=== PATIENT | male | born 1995 | race Caucasian/White ===

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

== ENCOUNTER 2019-01-13 22:01 | Emergency (ER) | payer BC, OTHER ==
--- NOTE | 2019-01-13 23:29 | ED ---
Lower Extremity - History of Current Complaint Chief Complaint: EDExtremityLower Stated Complaint: LF KNEE LACERATION PER PT Time Seen by Provider: 01/13/19 22:46 Hx Obtained From: Patient Pain Intensity: 4 - Allergies/Home Medications Allergies/Adverse Reactions: Allergies Allergy/AdvReac Type Severity Reaction Status Date / Time No Known Allergies Allergy Verified 01/13/19 22:06 PMH/Surg Hx/FS Hx/Imm Hx Previously Healthy: Yes - Denies significant PMH Endocrine/Hematology History: Denies: Hx Diabetes Cardiovascular History: Denies: Hx Hypertension Infectious Disease History: Yes Infectious Disease History: Denies: Traveled Outside the [place] in Last 30 Days - Family History Known Family History: Negative: Hypertension - Social History Alcohol Use: None Substance Use Type: Reports: None Smoking Status (MU): Never Smoked Tobacco Review of Systems Constitutional: Negative Cardiovascular: Negative Respiratory: Negative Gastrointestinal: Negative Genitourinary: Negative Neurological: Negative All Other Systems Reviewed And Are Negative: Yes Physical Exam - Summary Physical Exam Summary: GENERAL APPEARANCE: Well developed, well nourished, alert and cooperative, and appears to be in no acute distress. CARDIAC: Normal S1 and S2. No S3, S4 or murmurs. Rhythm is regular. There is no peripheral edema, cyanosis or pallor. Extremities are warm and well perfused. Capillary refill is less than 2 seconds. Peripheral pulses intact. LUNGS: Clear to auscultation without rales, rhonchi, wheezing or diminished breath sounds. ABDOMEN: Positive bowel sounds. Soft, nondistended, nontender. No guarding or rebound. No masses or hepatosplenomegally. MUSKULOSKELETAL: ROM intact to all extremities. No joint erythema or tenderness. Normal muscular development. Normal gait. BACK: Examination of the spine reveals normal gait and posture, no spinal deformity or tenderness, decreased range of motion or muscular spasm. EXTREMITIES: Mild tenderness over the left petella without gross deformity, ecchymosis, or edema. Linear laceration noted to the anterior knee with bleeding controlled. Full ROM. Circulation and sensation intact. SKIN: Skin normal color, texture and turgor. Triage Information Reviewed: Yes Vital Signs On Initial Exam: Initial Vitals Temp Pulse Resp BP Pulse Ox 98.7 F 72 16 131/89 98 01/13/19 22:03 01/13/19 22:03 01/13/19 22:03 01/13/19 22:03 01/13/19 22:03 Vital Signs Reviewed: Yes Procedures - Procedure Summary Procedure Summary: Procedure note: Laceration repair ____ Informed consent was obtained before procedure started and the appropriate timeout was taken. The area was prepped and draped in the usual sterile fashion. Local anesthesia was achieved using __ ml of lidocaine __% with/ without epinephrine. The wound was copiously irrigated. The wound margins were brought into good alignment and # interrupted sutures were placed using ___. Total length of wound after repair was _ cm. Estimated blood loss was __ mL. A dressing was applied to the area. Anticipatory guidance, as well as standard post-procedure care was discussed with patient. Return precautions are given. The patient tolerated the procedure well without complications. Patient is to follow up in __ days for suture removal and evaluation of the laceration. - Sedation Patient Received Moderate/Deep Sedation with Procedure: No Diagnostics - Vital Signs Vital Signs Temp Pulse Resp BP Pulse Ox 01/13/19 22:03 98.7 F 72 16 131/89 98 - Laboratory Lab Statement: Any lab studies that have been ordered have been reviewed, and results considered in the medical decision making process. - Radiology No standard instances Radiology Interpretation Completed By: ED Physician - No acute fracture Lower Extremity Course/Dx - Diagnoses Differential Diagnosis/HQI/PQRI: Positive: Contusion, Fracture (Closed), Sprain , Other - Abrasion, laceration Provider Diagnoses: Laceration of left knee Discharge ED - Sign-Out/Discharge Documenting (check all that apply): Patient Departure - Discharge Plan Condition: Stable Disposition: HOME Patient Education Materials: Care For Your Stitches (ED), Laceration (ED) Referrals: Prosper Glez DO [Primary Care Provider] - Additional Instructions: The x-ray of your knee showed no evidence of fracture. The x-ray will be reviewed by the radiologist tomorrow and we will notify if there is any change in your plan of care. Leave the dressing that was applied in the clinic in place until tomorrow. Be sure to keep it clean and dry. Starting tomorrow, you may remove the dressing and shower as normal. Do not submerge the knee under water until fully healed to prevent infection. Clean the wound with a mild soap and water at least once a day. Apply some antibiotic ointment and cover with a bandage. This should be changed at least once a day or any time the dressing becomes wet or soiled. Use acetaminophen (Tylenol) or ibuprofen (Advil, Motrin) according to directions as needed for pain. Sutures will need to be removed in 10-14 days. You may return here or with your primary care provider to have this done. Watch for signs of infection including fever greater than 100.5 F, severe pain not managed with pain medication, redness that spreads, swelling of the knee, or pus draining from the wound. Seek immediate medical attention should any of these occur. - Billing Disposition and Condition Condition: STABLE Disposition: Home
[2019-01-14] MEDS: Bacitracin OINTMENT* 0.5% 0.5 oz TUBE TOPICAL ONE (01:05)
[2019-01-14 01:19] VITALS: BP 119/62
== END 2019-01-14 01:15 | disposition home or self-care (01) ==
LOC: ED 22:01
DX: S81.012A Laceration without foreign body, left knee, initial encounter (principal); X58.XXXA Exposure to other specified factors, initial encounter; Y92.9 Unspecified place or not applicable
CPT/HCPCS: 12001; 99282; A9270-GY

== ENCOUNTER 2019-03-11 10:59 | Emergency (ER) | payer SELFPAY ==
[2019-03-11] MEDS ORDERED: Ibuprofen TAB* 600 MG PO ONE (11:40)
[2019-03-11] MEDS ORDERED: Acetaminophen TAB* 325 MG PO ONE (11:40)
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
[2019-03-11 11:52] VITALS: BP 129/69
== END 2019-03-11 11:52 | disposition home or self-care (01) ==
LOC: ED 10:59
DX: S06.0X9A Concussion with loss of consciousness of unspecified duration, initial encounter (principal); R51 Headache; R11.10 Vomiting, unspecified; M54.2 Cervicalgia; Z79.899 Other long term (current) drug therapy; V47.6XXA Car passenger injured in collision with fixed or stationary object in traffic accident, initial encounter; Y92.410 Unspecified street and highway as the place of occurrence of the external cause
CPT/HCPCS: 99282; A9270-GY

== ENCOUNTER 2019-04-10 13:16 | Emergency (ER) | payer OTHER ==
[2019-04-10 14:49] LABS: ABS Eosinophils 0.1 10^3/ul (0-0.6); ABS Monocytes 0.6 10^3/ul (0-0.8); ABS Neutrophils 3.8 10^3/ul (1.5-7.7); Eosinophil % 1.9 %; Hematocrit 43 % (42-52); Hemoglobin 15.2 g/dL (14.0-18.0); Mean Corpuscular HGB Conc 36 g/dL (31-36); Mean Corpuscular Hemoglobin 32 pg (27-31); Mean Corpuscular Volume 90 fL (80-94); Mean Platelet Volume 7.6 fL (7.4-10.4); Nucleated Red Blood Cells % 0.1; Platelet Count 266 10^3/uL (150-450); Red Blood Count 4.73 10^6 /uL (4.18-5.48); Red Cell Distribution Width 14 % (10-15); White Blood Count 6.6 10^3/uL (3.5-10.8)
[2019-04-10 15:11] LABS: CO2 Carbon Dioxide 28 mmol/L (22-32); Chloride 105 mmol/L (101-111); Sodium 140 mmol/L (135-145)
[2019-04-10 15:17] LABS: Blood Urea Nitrogen 25 mg/dL (6-24); EGFR African American 78.1 (>60); EGFR Non-African American 64.5 (>60); Glucose 70 mg/dL (70-100)
[2019-04-10 15:21] LABS: HCG Pregnancy < 0.60 mIU/mL
[2019-04-10 15:33] LABS: Anion Gap 7 mmol/L (2-11); Potassium 4.7 mmol/L (3.5-5.0)
[2019-04-10 16:06] LABS: Urine Appearance Clear; Urine Bilirubin Negative (Negative); Urine Blood Negative (Negative); Urine Color Yellow; Urine Glucose Negative (Negative); Urine Ketones Negative (Negative); Urine Nitrite Negative (Negative); Urine Protein Negative (Negative); Urine Urobilinogen Negative (Negative)
[2019-04-10 17:09] LABS: Creatine Kinase 221 U/L (10-223)
--- NOTE | 2019-04-10 19:07 | ED ---
GI/ HPI - HPI Summary HPI Summary: 23 y/o male presented to [facility] for urinary complaints. 2 weeks ago the pt experienced dark red urine which appeared again about a week ago. Pt has had bilat flank pain after going to his PCP on 04/08/19. In addition, he has had intermittent difficulty sleeping, fatigue, PECK, dizziness, that he believes is due to a concussion 1mo ago but worsened again around when the kidney sx began. Pt notes hx Vitamin D deficiency and fhx of kidney transplant at roughly his age in his mother. No NSAID use. - History of Current Complaint Chief Complaint: EDFlankPain Time Seen by Provider: 04/10/19 16:02 Stated Complaint: BLOOD IN URINE/FLANK PAIN PER PT Hx Obtained From: Patient Onset/Duration: Started Weeks Ago, Atraumatic, Still Present Timing: Intermittent Pain Intensity: 4 Location of Pain: Flank - bilat Associated Signs and Symptoms: Positive: Hematuria, Flank Pain - Allergy/Home Medications Allergies/Adverse Reactions: Allergies Allergy/AdvReac Type Severity Reaction Status Date / Time No Known Allergies Allergy Verified 04/10/19 13:23 PMH/Surg Hx/FS Hx/Imm Hx Endocrine/Hematology History: Denies: Hx Diabetes Cardiovascular History: Denies: Hx Hypertension Sensory History: Denies: Hx Legally Blind, Hx Deafness Opthamlomology History: Denies: Hx Legally Blind Neurological History: Reports: Other Neuro Impairments/Disorders - Concussion - Surgical History Surgery Procedure, Year, and Place: None Infectious Disease History: No Infectious Disease History: Denies: Traveled Outside the US in Last 30 Days - Family History Known Family History: Negative: Hypertension - Social History Alcohol Use: Rare Hx Substance Use: No Substance Use Type: Reports: None Hx Tobacco Use: No Smoking Status (MU): Never Smoked Tobacco Review of Systems Positive: Fatigue Positive: flank pain - bilat, hematuria Neurological/Mental Status: Other - fatigue Positive: Headache All Other Systems Reviewed And Are Negative: Yes Physical Exam - Summary Physical Exam Summary: Constitutional: Well-developed, Well-nourished, Alert. (-) Distressed Skin: Warm, Dry HENT: Normocephalic; Atraumatic Eyes: Conjunctiva normal Neck: Musculoskeletal ROM normal neck. (-) JVD, (-) Stridor, (-) Nuchal rigidity Cardio: Rhythm regular, rate normal, Heart sounds normal; Intact distal pulses; Radial pulses are 2+ and symmetric. (-) Murmur Pulmonary/Chest wall: Effort normal. (-) Respiratory distress, (-) Wheezes, (-) Rales Abd: Soft, (+) mild bilat flank tenderness, (-) Distension, (-) Guarding, (-) Rebound Musculoskeletal: (-) Edema Neuro: Alert, Oriented x3 Psych: Mood and affect Normal Triage Information Reviewed: Yes Vital Signs On Initial Exam: Initial Vitals Temp Pulse Resp BP Pulse Ox 98.7 F 90 19 121/92 98 04/10/19 13:17 04/10/19 13:17 04/10/19 13:17 04/10/19 13:17 04/10/19 13:17 Vital Signs Reviewed: Yes Procedures - Sedation Patient Received Moderate/Deep Sedation with Procedure: No Diagnostics - Vital Signs Vital Signs Temp Pulse Resp BP Pulse Ox 04/10/19 13:17 98.7 F 90 19 121/92 98 - Laboratory Lab Results: Lab Results 04/10/19 04/10/19 04/10/19 Range/Units 14:40 14:40 15:55 WBC 6.6 (3.5-10.8) 10^3/uL RBC 4.73 (4.18-5.48) 10^6 /uL Hgb 15.2 (14.0-18.0) g/dL Hct 43 (42-52) % MCV 90 (80-94) fL MCH 32 H (27-31) pg MCHC 36 (31-36) g/dL RDW 14 (10-15) % Plt Count 266 (150-450) 10^3/uL MPV 7.6 (7.4-10.4) fL Neut % (Auto) 58.3 % Lymph % (Auto) 30.0 % Weld % (Auto) 9.0 % Eos % (Auto) 1.9 % Baso % (Auto) 0.8 % Absolute Neuts (auto) 3.8 (1.5-7.7) 10^3/ul Absolute Lymphs (auto) 2.0 (1.0-4.8) 10^3/ul Absolute Monos (auto) 0.6 (0-0.8) 10^3/ul Absolute Eos (auto) 0.1 (0-0.6) 10^3/ul Absolute Basos (auto) 0.0 (0-0.2) 10^3/ul Absolute Nucleated RBC 0.0 10^3/ul Nucleated RBC % 0.1 Sodium 140 (135-145) mmol/L Potassium 4.7 (3.5-5.0) mmol/L Chloride 105 (101-111) mmol/L Carbon Dioxide 28 (22-32) mmol/L Anion Gap 7 (2-11) mmol/L BUN 25 H (6-24) mg/dL Creatinine 1.39 H (0.67-1.17) mg/dL Est GFR ( Amer) 78.1 (>60) Est GFR (Non-Af Amer) 64.5 (>60) BUN/Creatinine Ratio 18.0 (8-20) Glucose 70 (70-100) mg/dL Calcium 10.0 (8.6-10.3) mg/dL Total Creatine Kinase 221 (10-223) U/L Beta HCG, Quant < 0.60 mIU/mL Urine Color Yellow Urine Appearance Clear Urine pH 7.0 (5-9) Ur Specific [place] 1.020 (1.010-1.030) Urine Protein Negative (Negative) Urine Ketones Negative (Negative) Urine Blood Negative (Negative) Urine Nitrate Negative (Negative) Urine Bilirubin Negative (Negative) Urine Urobilinogen Negative (Negative) Ur Leukocyte Esterase Negative (Negative) Urine Glucose Negative (Negative) Result Diagrams: 04/10/19 14:40 04/10/19 14:40 Lab Statement: Any lab studies that have been ordered have been reviewed, and results considered in the medical decision making process. - Ultrasound renal Ultrasound Interpretation Completed By: Radiologist Summary of Ultrasound Findings: IMPRESSION: Normal renal ultrasound examination. The ED physician has reviewed this report. GIGU Course/Dx - Course Course Of Treatment: 23-year-old male presenting with flank pain. - physical exam of the well-appearing male, vital signs are stable. Labs with elevated creatinine at 1.3 no prior on record. Urinalysis negative for blood or protein. Ultrasound kidneys not show any abnormalities. Patient was referred to nephrology for further workup - Diagnoses Provider Diagnoses: Impaired renal function Discharge ED - Sign-Out/Discharge Documenting (check all that apply): Patient Departure - dc - Discharge Plan Condition: Stable Disposition: HOME Patient Education Materials: Impaired Kidney Function (ED) Referrals: Prosper Glez DO [Primary Care Provider] - Madison Dangelo MD [Medical Doctor] - 1 Week Additional Instructions: You were seen in the emergency department for flank pain. Your ultrasound did not show any abnormalities. Your creatinine which is a number for kidney function was slightly elevated at 1.4 today. Please follow up with a traffic operator. Please return for worsening pain. Please follow up with your primary care doctor in next 2-3 days and return to emergency department for worsening pain, decreased urine output, blood in her urine, or concerning symptoms. It was a pleasure taking care of you today. - Billing Disposition and Condition Condition: STABLE Disposition: Home - Attestation Statements Document Initiated by Scribe: Yes Documenting Scribe: Aleks Delgado Provider For Whom Scribe is Documenting (Include Credential): Ham Alexis Scribe Attestation: Aleks Riley, scribed for Ham Alexis on 04/11/19 at 1557. Scribe Documentation Reviewed: Yes Provider Attestation: The documentation as recorded by the scribeAleks accurately reflects the service I personally performed and the decisions made by Ham stack Status of Scribe Document: Viewed
[2019-04-10 19:13] VITALS: BP 111/62
== END 2019-04-10 19:12 | disposition home or self-care (01) ==
LOC: ED 13:16
DX: N28.9 Disorder of kidney and ureter, unspecified (principal)
CPT/HCPCS: 36415; 76775; 80048; 81003; 82550; 84702; 85025; 99282

== ENCOUNTER 2019-04-25 20:07 | Emergency (ER) | payer BC ==
--- OUTSIDE RECORDS SUMMARY | 2019-04-25 20:18 | XMS REPORT | Continuity of Care Document ---
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 [phone] Problems Description No Information Available Social History Type Date Description Comments Sex Unknown ETOH Use Denies alcohol use Recreational Drug Use Denies Drug Use Tobacco Use Start: Unknown Patient has never smoked Smoking Status Reviewed: 04/13/19 Patient has never smoked Exercise Type/Frequency Rowing Allergies, Adverse Reactions, Alerts Description No Known Drug Allergies Medications Active Medications SIG Qnty Indications Ordering Provider Date Lexapro 1 by mouth every Unknown 5mg Tablets day Immunizations Description No Information Available Vital Signs Date Vital Result Comment 04/13/2019 1:56pm Height 76 inches 6'4" Weight 203.00 lb Heart Rate 80 /min BP Systolic Sitting 120 mmHg L arm BP Diastolic Sitting 71 mmHg L arm O2 % BldC Oximetry 98 % BMI (Body Mass Index) 24.7 kg/m2 Results Description No Information Available Procedures Description No Information Available Medical Devices Description No Information Available Encounters Description No Information Available Assessments Date Code Description Provider 04/13/2019 N17.9 Acute kidney failure, unspecified Madison Dangelo MD 04/13/2019 R31.0 Gross hematuria Madison Dangelo MD Plan of Treatment Future Appointment(s):05/10/2019 11:20 am - Madison Dangelo MD at [facility]35/19/2020 - Madison Dangelo MDN17.9 Acute kidney failure, unspecifiedFollow up:1 month f/u with labs few days [id number] Gross hematuria Functional Status Description No Information Available Mental Status Description No Information Available Referrals Description No Information Available
[2019-04-25 20:39] LABS: Urine Appearance Clear; Urine Bilirubin Negative (Negative); Urine Blood 2+ (Negative); Urine Color Yellow; Urine Glucose Negative (Negative); Urine Ketones Negative (Negative); Urine Nitrite Negative (Negative); Urine Protein Negative (Negative); Urine Specific Gravity 1.021 (1.010-1.030); Urine Urobilinogen Negative (Negative)
[2019-04-25 20:42] LABS: Urine Bacteria Absent (Absent); Urine Red Blood Cell 3+(>10/hpf) (Absent); Urine Squamous Epithelial Cell Present (Absent); Urine White Blood Cell Absent (Absent)
--- NOTE | 2019-04-25 21:15 | ED ---
GI/ HPI - HPI Summary HPI Summary: This patient is a 23 y/o male presenting to [facility] c/o hematuria since 03/31/19. Patient describes hematuria as coke colored urine. Additionally reports bilateral flank pain, worse on the left than the right, and nausea. Denies vomiting. He states he has constant pain of 4 or 5 out of 10 in severity but waxes and wanes up to a 7/10 in severity. Patient reports he is sexually active. Denies penile discharge, dysuria, fever. He denies hx of kidney stones. Patient went to [facility] where he had an ultrasound done and had STD testing. Patient notes STD tests were negative and he was prescribed Zofran for the nausea. PMHx: anxiety for which she takes Lexapro. Home Medications Medication Instructions Recorded Confirmed Type Escitalopram * [Lexapro 10 mg (NF)] 10 mg PO QPM 03/11/19 03/11/19 History - History of Current Complaint Chief Complaint: EDFlankPain Time Seen by Provider: 04/25/19 21:00 Stated Complaint: URINATING BLOOD/FLANK PAIN/NAUSEA PER PT Hx Obtained From: Patient Onset/Duration: Started Weeks Ago, Still Present Timing: Lasting Weeks Current Severity: Moderate Pain Intensity: 5 Location of Pain: Flank - bilateral, more Left than Right Associated Signs and Symptoms: Positive: Nausea, Hematuria, Flank Pain - bilateral. Negative: Vomiting, Fever, Dysuria Additional Signs & Symptoms: Negative: Penile Discharge Aggravating Factor(s): Nothing Alleviating Factor(s): Nothing - Allergy/Home Medications Allergies/Adverse Reactions: Allergies Allergy/AdvReac Type Severity Reaction Status Date / Time No Known Allergies Allergy Verified 04/25/19 20:11 Home Medications: Home Medications Escitalopram * [Lexapro 10 mg (NF)] 10 mg PO QPM 03/11/19 [History Confirmed 04/14] PMH/Surg Hx/FS Hx/Imm Hx Endocrine/Hematology History: Denies: Hx Diabetes Cardiovascular History: Denies: Hx Hypertension History: Denies: Hx Kidney Stones Sensory History: Denies: Hx Legally Blind, Hx Deafness Opthamlomology History: Denies: Hx Legally Blind Neurological History: Reports: Other Neuro Impairments/Disorders - Concussion Psychiatric History: Reports: Hx Anxiety - Surgical History Surgical History: None Infectious Disease History: Yes Infectious Disease History: Denies: Traveled Outside the [place] in Last 30 Days - Family History Known Family History: Negative: Cardiac Disease, Hypertension, Diabetes - Social History Alcohol Use: Rare Hx Substance Use: No Substance Use Type: Reports: None Hx Tobacco Use: No Smoking Status (MU): Never Smoked Tobacco Review of Systems Negative: Fever Positive: Nausea. Negative: Vomiting Positive: flank pain - bilateral, hematuria. Negative: dysuria, discharge All Other Systems Reviewed And Are Negative: Yes Physical Exam - Summary Physical Exam Summary: VITAL SIGNS: Reviewed. GENERAL: Patient is a well-developed and nourished male who is lying comfortable in the stretcher. Patient is not in any acute respiratory distress. HEAD AND FACE: No signs of trauma. No ecchymosis, hematomas or skull depressions. No sinus tenderness. EYES: PERRLA, EOMI x 2, No injected conjunctiva, no nystagmus. EARS: Hearing grossly intact. Ear canals and tympanic membranes are within normal limits. MOUTH: Oropharynx within normal limits. NECK: Supple, trachea is midline, no adenopathy, no JVD, no carotid bruit, no c- spine tenderness, neck with full ROM. CHEST: Symmetric, no tenderness at palpation LUNGS: Clear to auscultation bilaterally. No wheezing or crackles. CVS: Regular rate and rhythm, S1 and S2 present, no murmurs or gallops appreciated. ABDOMEN: Soft, non-tender. No signs of distention. No rebound, no guarding, and no masses palpated. Bowel sounds are normal. Bilateral flank tenderness, worse on the left than right. EXTREMITIES: FROM in all major joints, no edema, no cyanosis or clubbing. NEURO: Alert and oriented x 3. No acute neurological deficits. Speech is normal and follows commands. SKIN: Dry and warm Triage Information Reviewed: Yes Vital Signs On Initial Exam: Initial Vitals Temp Pulse Resp BP Pulse Ox 98.9 F 67 15 135/45 98 04/25/19 20:09 04/25/19 20:09 04/25/19 20:09 04/25/19 20:09 04/25/19 20:09 Vital Signs Reviewed: Yes Procedures - Sedation Patient Received Moderate/Deep Sedation with Procedure: No Diagnostics - Vital Signs Vital Signs Temp Pulse Resp BP Pulse Ox 04/25/19 20:09 98.9 F 67 15 135/45 98 - Laboratory Lab Results: Lab Results 04/25/19 Range/Units Unknown Urine Color Yellow Urine Appearance Clear Urine pH 6.0 (5-9) Ur Specific [place] 1.021 (1.010-1.030) Urine Protein Negative (Negative) Urine Ketones Negative (Negative) Urine Blood 2+ A (Negative) Urine Nitrate Negative (Negative) Urine Bilirubin Negative (Negative) Urine Urobilinogen Negative (Negative) Ur Leukocyte Esterase Negative (Negative) Urine WBC (Auto) Absent (Absent) Urine RBC (Auto) 3+(>10/hpf) A (Absent) Ur Squamous Epith Cells Present A (Absent) Urine Bacteria Absent (Absent) Urine Glucose Negative (Negative) Result Diagrams: 04/25/19 21:28 04/25/19 21:28 Lab Statement: Any lab studies that have been ordered have been reviewed, and results considered in the medical decision making process. GIGU Course/Dx - Course Assessment/Plan: This patient is a 23 y/o male presenting to [facility] c/o hematuria since 03/31/19. Patient describes hematuria as coke colored urine. Additionally reports bilateral flank pain, worse on the left than the right, and nausea. Denies vomiting. He states he has constant pain of 4 or 5 out of 10 in severity but waxes and wanes up to a 7/10 in severity. Patient reports he is sexually active. Denies penile discharge, dysuria, fever. He denies hx of kidney stones. Patient went to [facility] where he had an ultrasound done and had STD testing. Patient notes STD tests were negative and he was prescribed Zofran for nausea. PMHx: anxiety for which she takes Lexapro. In the ED course the patient was placed in a community health planning director, IV access was obtained, IV fluids were started. He was given Toradol and Zofran. Past medical records reviewed. UA positive for blood. No UTI. Blood work is pending. Abdomen/Pelvis CT is pending. Patient will be signed out to Dr. Mclaughlin at shift change pending blood work and CT results. - Diagnoses Provider Diagnoses: Flank pain Discharge ED - Sign-Out/Discharge Documenting (check all that apply): Sign-Out Patient Signing out patient TO: Stacie Montesinos - pending labs, CT abdomen/ pelvis and dispo - Discharge Plan Condition: Stable Disposition: HOME Patient Education Materials: Hematuria (ED), Flank Pain (ED) Print Language: DUTCH Referrals: Prosper Glez DO [Primary Care Provider] - Srikanth Bill MD [Medical Doctor] - - Billing Disposition and Condition Condition: STABLE - Attestation Statements Document Initiated by Scribe: Yes Documenting Scribe: Tari Hatfield Provider For Whom Scribe is Documenting (Include Credential): Shady Toledo MD Scribe Attestation: I, Tari Hatfield, scribed for Shady Toledo MD on 04/26/19 at 1524. Scribe Documentation Reviewed: Yes Provider Attestation: The documentation as recorded by the Tari welch accurately reflects the service I personally performed and the decisions made by me, Shady Toledo MD Status of Scribe Document: Viewed
[2019-04-25] MEDS ORDERED: NS 0.9% 1000 ML** 1,000 ML IV ONE (21:36)
[2019-04-25] MEDS ORDERED: Ondansetron INJ* 2 MG/ML VIAL IV ONE (21:36)
[2019-04-25] MEDS ORDERED: Ketorolac INJ* 30 MG/ML 1 ML VIAL IV PUSH ONE (21:36)
[2019-04-25 21:44] LABS: ABS Basophils 0.1 10^3/ul (0-0.2); ABS Eosinophils 0.1 10^3/ul (0-0.6); ABS Lymphocytes 2.5 10^3/ul (1.0-4.8); ABS Monocytes 0.5 10^3/ul (0-0.8); ABS Neutrophils 7.1 10^3/ul (1.5-7.7); Eosinophil % 0.6 %; Hematocrit 41 % (42-52); Hemoglobin 14.6 g/dL (14.0-18.0); Lymphocyte % 24.2 %; Mean Corpuscular HGB Conc 36 g/dL (31-36); Mean Corpuscular Hemoglobin 32 pg (27-31); Mean Corpuscular Volume 89 fL (80-94); Mean Platelet Volume 7.9 fL (7.4-10.4); Nucleated Red Blood Cells % 0.1; Platelet Count 267 10^3/uL (150-450); Red Cell Distribution Width 13 % (10-15); White Blood Count 10.2 10^3/uL (3.5-10.8)
[2019-04-25 22:17] LABS: ALT 14 U/L (7-52); AST 26 U/L (13-39); Albumin 4.7 g/dL (3.2-5.2); Alkaline Phosphatase 60 U/L (34-104); Anion Gap 7 mmol/L (2-11); Blood Urea Nitrogen 31 mg/dL (6-24); C Reactive Protein < 1.00 mg/L (<8.01); CO2 Carbon Dioxide 28 mmol/L (22-32); Calcium 9.8 mg/dL (8.6-10.3); Chloride 104 mmol/L (101-111); Creatine Kinase 133 U/L (10-223); EGFR African American 97.1 (>60); EGFR Non-African American 80.3 (>60); Globulin 2.4 g/dL (2-4); Glucose 86 mg/dL (70-100); Potassium 3.9 mmol/L (3.5-5.0); Sodium 139 mmol/L (135-145); Total Protein 7.1 g/dL (6.4-8.9)
--- NOTE | 2019-04-25 22:51 | ED ---
Progress - Progress Note Progress Note: The patient is a sign-out from Dr. Shady Toledo MD, to Dr. Stacie Angel MD, at change of shift at 2200 on 04/25/2019, pending Abd/Pel CT and disposition. Abd/Pel CT impression reveals minimal nonobstructing left renal calculus without ureteral calculi or obstructive uropathy, positive trace free fluid in the pelvis which is nonspecific but unusual in a male and of uncertain etiology. Patient is safe for discharge with PCP and urology follow up. Patient agreeable with plan. - Results/Orders Results/Orders: Abd/Pel CT Impression: 1. Minimal nonobstructing left renal calculus. No ureteral calculi are evident and there is no evidence of obstructive uropathy. 2. Trace free fluid in the pelvis which is nonspecific but unusual in a male and of uncertain etiology. ED physician has reviewed this report. Re-Evaluation - Re-Evaluation First Eval Re-Evaluation Time: 23:45 Comment: We discussed all results and plan for discharge. Course/Dx - Course Course Of Treatment: The patient is a sign-out from Dr. Shady Toledo MD, to Dr. Stacie Montesinos MD, at change of shift at 2200 on 04/25/2019, pending Abd/Pel CT and disposition. Abd/Pel CT impression reveals minimal nonobstructing left renal calculus without ureteral calculi or obstructive uropathy, positive trace free fluid in the pelvis which is nonspecific but unusual in a male and of uncertain etiology. Patient's symptoms seemingly do not correlate with CT results. Patient is safe for discharge with PCP and urology follow up. Patient agreeable with plan. - Diagnoses Provider Diagnoses: Flank pain Discharge ED - Sign-Out/Discharge Documenting (check all that apply): Patient Departure - Patient will be discharged home., Receiving Sign-Out Receiving patient FROM: Shady Toledo - Patient is a sign-out from Dr. Shady Toledo MD, at 2200 on 04/25/2019, pending ABd/Pel CT and disposition. - Discharge Plan Condition: Stable Disposition: HOME Patient Education Materials: Hematuria (ED), Flank Pain (ED) Print Language: CROATIAN Referrals: Prosper Glez DO [Primary Care Provider] - Srikanth Bill MD [Medical Doctor] - - Billing Disposition and Condition Condition: STABLE Disposition: Home - Attestation Statements Document Initiated by Thai: Yes Documenting Scribe: Deepthi Calderón Provider For Whom Thai is Documenting (Include Credential): Dr. Stacie Montesinos MD Scribe Attestation: Deepthi Riley, scribed for Dr. Stacie Montesinos MD on 04/26/19 at 0558. Scribe Documentation Reviewed: Yes Provider Attestation: The documentation as recorded by the Deepthi welch accurately reflects the service I personally performed and the decisions made by me, Dr. Stacie Montesinos MD Status of Scribe Document: Viewed Procedures - Sedation Patient Received Moderate/Deep Sedation with Procedure: No
[2019-04-26 00:05] VITALS: BP 120/69
== END 2019-04-26 00:04 | disposition home or self-care (01) ==
LOC: ED 20:07
DX: N20.0 Calculus of kidney (principal); R10.9 Unspecified abdominal pain; R31.9 Hematuria, unspecified; R11.0 Nausea; F41.9 Anxiety disorder, unspecified
CPT/HCPCS: 36415; 74176; 80053; 81003; 81015; 82550; 83690; 85025; 86140; 96361; 96374; 96375; 99283; J1885; J2405

== ENCOUNTER 2019-05-21 12:31 | Emergency (ER) | payer BC ==
--- NOTE | 2019-05-21 13:23 | ED ---
HPI Chest Pain - HPI Summary HPI Summary: Pt. is a 23 y.o male who presents to the ER for left sided, sharp chest pain x 2 -3 days. Pt. notes pain is better sitting and worse lying down. Denies recent cough, fever, SOB, N/V, abd. pain. Denies family hx of CAD or clotting d/o. Denies recent travel, surgery, leg swelling. Denies drug or ETOH use. Denies excessive caffeine use. Sxs are moderate in severity. Pain minimal at this time. Hx of hematuria. Pt. seen in ED for cp a few years ago and was thought to possibly have pericarditits. Pt. f.u with cardiology and had a negative echo. Pt. does note that his roommate was exposured to someone COVID positive. Notes his roommate has been quarantining for almost 14 days and is asymptomatic. Pt. denies sxs of fever, sob, cough. - History of Current Complaint Chief Complaint: EDChestPainROMI Time Seen by Provider: 05/21/19 12:47 Hx Obtained From: Patient Pain Intensity: 4 - Allergy/Home Medications Allergies/Adverse Reactions: Allergies Allergy/AdvReac Type Severity Reaction Status Date / Time No Known Allergies Allergy Verified 04/25/19 20:11 Home Medications: Home Medications Escitalopram * [Lexapro 10 mg (NF)] 10 mg PO QPM 03/11/19 [History Confirmed ] PMH/Surg Hx/FS Hx/Imm Hx Previously Healthy: Yes Endocrine/Hematology History: Denies: Hx Diabetes Cardiovascular History: Denies: Hx Hypertension History: Denies: Hx Kidney Stones Sensory History: Denies: Hx Legally Blind, Hx Deafness Opthamlomology History: Denies: Hx Legally Blind Neurological History: Reports: Other Neuro Impairments/Disorders - Concussion Psychiatric History: Reports: Hx Anxiety Infectious Disease History: No Infectious Disease History: Denies: Traveled Outside the [place] in Last 30 Days - Family History Known Family History: Negative: Cardiac Disease, Hypertension, Diabetes - Social History Alcohol Use: Rare Hx Substance Use: No Substance Use Type: Reports: None Hx Tobacco Use: No Smoking Status (MU): Never Smoked Tobacco Review of Systems Constitutional: Negative Positive: Chest Pain Respiratory: Negative Negative: Shortness Of Breath, Cough Gastrointestinal: Negative Genitourinary: Negative Skin: Negative Neurological/Mental Status: Negative All Other Systems Reviewed And Are Negative: Yes Physical Exam Triage Information Reviewed: Yes Vital Signs On Initial Exam: Initial Vitals Temp Pulse Resp BP Pulse Ox 97.7 F 69 16 135/78 98 05/21/19 12:43 05/21/19 12:43 05/21/19 12:43 05/21/19 12:43 05/21/19 12:43 Vital Signs Reviewed: Yes Appearance: Positive: Well-Appearing - Pt. sitting up in bed in NAD. Pleasant. Skin: Positive: Warm, Dry Head/Face: Positive: Normal Head/Face Inspection Eyes: Positive: Normal, EOMI Neck: Positive: Supple Respiratory/Lung Sounds: Positive: Clear to Auscultation, Breath Sounds Present. Negative: Rales, Rhonchi, Wheezes Cardiovascular: Positive: Normal, RRR Abdomen Description: Positive: Nontender, Soft Neurological: Positive: Normal, CN Intact II-III Psychiatric: Positive: Affect/Mood Appropriate Procedures - Sedation Patient Received Moderate/Deep Sedation with Procedure: No Diagnostics - Vital Signs Vital Signs Temp Pulse Resp BP Pulse Ox 05/21/19 12:43 97.7 F 69 16 135/78 98 - Laboratory Result Diagrams: 05/21/19 13:24 05/21/19 13:24 Lab Statement: Any lab studies that have been ordered have been reviewed, and results considered in the medical decision making process. Chest Pain Course/Dx - Course Course Of Treatment: Pt. with sharp lefted chest pain. Afebrile with stable VS. ECG done at 1235 shows a sinus rhythm of 64bpm, normal axis, appropriate intervals, normal axis, no ST elevation or depression. CXR negative for acute findings per radiology. Labs unremarkable including normal CBC, CRP, trop and ESR. PERC score negative. Will dc pt. home. Advised motrin 400mg q 6. Will f.u with pcp and return to ER if sxs change or worsen. Pt. understands and agrees with plan. - Chest Pain Differential Diagnosis/HQI/PQRI: Acute TN, Chest Wall, GI Disease, Lower Respiratory Infection, Pulmonary Embolism - Diagnoses Provider Diagnoses: Atypical chest pain Discharge ED - Sign-Out/Discharge Documenting (check all that apply): Patient Departure - Discharge Plan Condition: Good Disposition: HOME Patient Education Materials: Chest Pain (ED) Referrals: Prosper Glez DO [Primary Care Provider] - Additional Instructions: Call your PCP on Thursday to schedule a follow up appointment within one week Take 400mg ibuprofen every 6 hours Return to ER if symptoms change or worsen - Billing Disposition and Condition Condition: GOOD Disposition: Home - Attestation Statements Provider Attestation: I was available for consultation for this patient. I did not evaluate the patient or participate in any medical decision making or disposition decisions unless I am specifically named in the chart as having consulted on the patient. If I have consulted on the patient, please see my own ED note on the patient encounter. Ham Alexis MD
[2019-05-21 13:29] LABS: ABS Basophils 0.1 10^3/ul (0-0.2); ABS Eosinophils 0.1 10^3/ul (0-0.6); ABS Lymphocytes 1.5 10^3/ul (1.0-4.8); ABS Monocytes 0.4 10^3/ul (0-0.8); ABS Neutrophils 3.2 10^3/ul (1.5-7.7); Eosinophil % 1.3 %; Hematocrit 44 % (42-52); Hemoglobin 15.8 g/dL (14.0-18.0); Lymphocyte % 28.5 %; Mean Corpuscular HGB Conc 36 g/dL (31-36); Mean Corpuscular Hemoglobin 32 pg (27-31); Mean Corpuscular Volume 89 fL (80-94); Mean Platelet Volume 7.6 fL (7.4-10.4); Nucleated Red Blood Cells % 0.1; Platelet Count 239 10^3/uL (150-450); Red Blood Count 5.01 10^6 /uL (4.18-5.48); Red Cell Distribution Width 13 % (10-15); White Blood Count 5.1 10^3/uL (3.5-10.8)
[2019-05-21 13:51] LABS: Albumin 4.3 g/dL (3.2-5.2); Albumin/Globulin Ratio 1.5 (1-3); BUN/Creatinine Ratio 20.2 (8-20); C Reactive Protein 1.04 mg/L (<8.01); Calcium 9.5 mg/dL (8.6-10.3); EGFR African American 103.3 (>60); EGFR Non-African American 85.4 (>60); Globulin 2.8 g/dL (2-4); Potassium 4.1 mmol/L (3.5-5.0); Total Bilirubin 0.8 mg/dL (0.2-1.0); Total Protein 7.1 g/dL (6.4-8.9)
[2019-05-21 13:53] LABS: Troponin I 0.01 ng/mL (<0.03)
[2019-05-21 14:28] LABS: TSH (Thyroid Stimulating Horm) 1.62 mcIU/mL (0.34-5.60)
[2019-05-21 14:32] LABS: Erythrocyte Sed Rate 2 mm/Hr (0-14)
[2019-05-21 15:40] VITALS: BP 112/68
== END 2019-05-21 15:38 | disposition home or self-care (01) ==
LOC: ED 12:31
DX: R07.89 Other chest pain (principal); F41.9 Anxiety disorder, unspecified
CPT/HCPCS: 36415; 71045; 80053; 83690; 84443; 84484; 85025; 85652; 86140; 93005; 99282